=== PATIENT | female | born 1980 | race Caucasian/White ===

== ENCOUNTER → 2020-02-01 13:56 | Outpatient (CLI) | payer OTHER, SELFPAY ==
[2020-02-01 14:53] LABS: hCG Titer Quant., Serum 2543 mIU/mL (1-3)
== END ==
PROVIDERS: Referring Provider Obstetrics & Gynecology; Visit Provider Obstetrics & Gynecology
DX: O02.1 Missed abortion (principal); Z3A.00 Weeks of gestation of pregnancy not specified
CPT/HCPCS: 36415; 84702; 86850; 86900; 86901

== ENCOUNTER → 2020-02-21 16:26 | Outpatient (CLI) | payer OTHER, SELFPAY ==
[2020-02-21 08:16] VITALS: BMI 24.4
[2020-02-23 20:08] LABS: Chlamydia By Nucleic Acid AMP Positive (Negative)
[2020-02-24 07:50] LABS: Gonococcus By Nucleic Acid AMP Negative (Negative)
[2020-02-27 12:52] LABS: HPV APTIMA, High Risk Negative (Negative)
== END ==
PROVIDERS: Visit Provider Obstetrics & Gynecology
DX: Z12.4 Encounter for screening for malignant neoplasm of cervix (principal)
CPT/HCPCS: 87491; 87591; 87624; 88175; G0145

== ENCOUNTER → 2020-03-14 08:07 | Outpatient (CLI) | payer OTHER, SELFPAY ==
[2020-02-21 08:16] VITALS: BMI 24.4
[2020-03-14 08:27] LABS: Absolute Lymphocyte Count 2.27 X10^3/uL (0.83-4.51); Basophil# 0.03 X10^3/uL; Basophil% 0.4 % (0-1); Eosinophils% 1.3 % (0-5); Hematocrit 37.2 % (37-47); Hemoglobin 12.8 g/dL (12.0-15.0); Lymphocyte # 2.27 X10^3/ul (4.0); Lymphocyte % 28.4 % (19-41); Mean Corp Hgb Conc 34.4 g/dL (32-36); Mean Corpuscular Hgb 30.3 pg (27.0-32.0); Mean Corpuscular Volume 87.9 fL (81-99); Mean Platelet Vol. 9.2 fl (6.2-12.0); Monocyte# 0.59 X10^3/uL; Monocyte% 7.4 % (0-10); NRBC Flagged by Analyzer 0 % (0-5); Neutrophil # 4.97 X10^3/uL (2.7-7.7); Neutrophil % 62.1 % (47-70); Platelet Count 247 K/mm3 (150-450); RBC Distribution Width CV 11.8 % (11.6-14.6); RBC Distribution Width SD 37.9 fl (35.1-43.9); Red Blood Count 4.23 M/mm3 (4.2-5.4)
[2020-03-14 14:14] LABS: HIV - WCH Non-Reactive (Nonreactive); Hepatitis B Surface Antigen Non-Reactive (Nonreactive); Hepatitis C Antibody Non-Reactive (Nonreactive); Rubella IgG Reactive (Nonreactive)
[2020-03-15 03:03] LABS: Rapid Plasmin Reagin (RPR) NONREACTIVE (NONREACTIVE)
== END ==
PROVIDERS: Referring Provider Obstetrics & Gynecology; Visit Provider Obstetrics & Gynecology
DX: O09.90 Supervision of high risk pregnancy, unspecified, unspecified trimester (principal)
CPT/HCPCS: 36415; 85025; 86592; 86703; 86762; 86803; 86850; 86870; 86900; 86901; 87340

== ENCOUNTER → 2020-03-22 14:57 | Outpatient (CLI) | payer OTHER, SELFPAY ==
[2020-03-22 09:10] VITALS: BMI 25.3
[2020-03-22 17:48] LABS: Chlamydia Trachomatis by PCR Negative (Negative); Neisserai gonorrhoeae by PCR Negative (Negative); Probe Check PASS; Sample Adequacy Control PASS; Specimen Processing Control PASS
== END ==
LOC: LABSPEC 14:58
PROVIDERS: Referring Provider Obstetrics & Gynecology; Visit Provider Obstetrics & Gynecology
DX: O98.811 Other maternal infectious and parasitic diseases complicating pregnancy, first trimester (principal); A74.9 Chlamydial infection, unspecified; Z3A.00 Weeks of gestation of pregnancy not specified
CPT/HCPCS: 87491; 87591

== ENCOUNTER → 2020-07-12 08:34 | Outpatient (CLI) | payer OTHER, SELFPAY ==
[2020-06-14 08:26] VITALS: BMI 27.2
[2020-07-12 08:48] LABS: Absolute Neutrophil Count 6.1 X10^3/uL (2.0-7.7); Basophil# 0.03 X10^3/uL; Basophil% 0.3 % (0-1); Eosinophil# 0.05 X10^3/uL; Eosinophils% 0.6 % (0-5); Hemoglobin 11.9 g/dL (12.0-15.0); Lymphocyte % 19.8 % (19-41); Mean Corpuscular Hgb 30.7 pg (27.0-32.0); Mean Corpuscular Volume 90.4 fL (81-99); Mean Platelet Vol. 9.5 fl (6.2-12.0); Monocyte# 0.62 X10^3/uL; Monocyte% 7.2 % (0-10); NRBC Flagged by Analyzer 0 % (0-5); Neutrophil # 6.12 X10^3/uL (2.7-7.7); Neutrophil % 71.4 % (47-70); Platelet Count 210 K/mm3 (150-450); RBC Distribution Width CV 12.2 % (11.6-14.6); Red Blood Count 3.87 M/mm3 (4.2-5.4); White Blood Count 8.6 K/mm3 (4.4-11.0)
[2020-07-12 08:56] LABS: Glucose Challenge Gest 1H 50g 151 mg/dL (70-140)
== END ==
PROVIDERS: Referring Provider Obstetrics & Gynecology; Visit Provider Obstetrics & Gynecology
DX: O09.90 Supervision of high risk pregnancy, unspecified, unspecified trimester (principal); O26.899 Other specified pregnancy related conditions, unspecified trimester; Z67.91 Unspecified blood type, Rh negative; Z3A.00 Weeks of gestation of pregnancy not specified
CPT/HCPCS: 36415; 82950; 85025; 86850; 86900; 86901

== ENCOUNTER → 2020-07-20 07:08 | Outpatient (CLI) | payer OTHER, SELFPAY ==
[2020-07-12 09:55] VITALS: BMI 27.2
[2020-07-20 08:12] LABS: Glucose GTT-Gestation. Fasting 93 mg/dL (<105)
[2020-07-20 09:11] LABS: Glucose GTT-Gestational 1 Hr 154 mg/dL (<190)
[2020-07-20 10:26] LABS: Glucose GTT-Gestational 2 Hr 113 mg/dL (<165)
[2020-07-20 11:50] LABS: Glucose GTT-Gestational 3 Hr 88 L (<145)
== END ==
PROVIDERS: Nurse Practitioner Women's Health; Referring Provider Obstetrics & Gynecology; Visit Provider Obstetrics & Gynecology
DX: Z13.1 Encounter for screening for diabetes mellitus (principal)
CPT/HCPCS: 36415; 82951; 82952

== ENCOUNTER 2020-08-23 11:25 | Outpatient (CLI) | payer OTHER, SELFPAY ==
[2020-08-23 10:45] VITALS: BMI 28.9
[2020-08-23 11:43] VITALS: TEMP 37.4
[2020-08-23 11:45] VITALS: PULSE 90; O2SAT 97
[2020-08-23 11:49] VITALS: BP 123/83; PULSE 87
[2020-08-23 11:50] LABS: Hematocrit 35.6 % (37-47); Hemoglobin 12.3 g/dL (12.0-15.0); Mean Corp Hgb Conc 34.6 g/dL (32-36); Mean Corpuscular Hgb 30.1 pg (27.0-32.0); Mean Platelet Vol. 9.8 fl (6.2-12.0); Platelet Count 233 K/mm3 (150-450); RBC Distribution Width CV 12.7 % (11.6-14.6); RBC Distribution Width SD 40.2 fl (35.1-43.9); Red Blood Count 4.09 M/mm3 (4.2-5.4); White Blood Count 9.7 K/mm3 (4.4-11.0)
[2020-08-23 12:02] LABS: Protein, Urine (Random) 17.9 mg/dL (<11.9); Protein:Creat Ratio 394 mg/g CRE (0-200)
[2020-08-23 12:03] VITALS: BP 118/78; PULSE 78
[2020-08-23 12:13] LABS: AST(SGOT) 11 U/L (15-37); Alanine Aminotransfer ALT/SGPT 14 U/L (13-56); EST Glomerular Filtration Rate 189 mL/min (>60); Est Glom Filt Rate - Afr Amer 229 mL/min (>60)
[2020-08-23 12:18] VITALS: BP 118/74; PULSE 82
--- NOTE | 2020-08-24 12:07 | OB.TRI.PN ---
Progress Notes Date of Service: 08/23/20 Progress Note: Patient presents for triage evaluation secondary to elevated blood pressure and intermittent PARK. BPs normal in triage. PreE labs normal except mildly elevated protein FHT: Moderate variability reactive no decelerations category I tracing [place]: No Contractions Assessment and plan: Reactive NST, reassuring maternal and status patient discharged to home to follow-up at next scheduled visit. See problem list details for additional plan information. Laboratory Studies: Laboratory Tests 08/23/20 08/23/20 08/23/20 Range/Units 11:40 11:40 11:40 WBC 9.7 (4.4-11.0) K/mm3 RBC 4.09 L (4.2-5.4) M/mm3 Hgb 12.3 (12.0-15.0) g/dL Hct 35.6 L (37-47) % MCV 87.0 (81-99) fL MCH 30.1 (27.0-32.0) pg MCHC 34.6 (32-36) g/dL RDW Std Deviation 40.2 (35.1-43.9) fl RDW Coeff of Nick 12.7 (11.6-14.6) % Plt Count 233 (150-450) K/mm3 MPV 9.8 (6.2-12.0) fl Creatinine 0.40 L (0.55-1.02) mg/dL Est GFR (MDRD) Af Amer 229 (>60) mL/min Est GFR (MDRD) Non-Af 189 (>60) mL/min Uric Acid 3.0 (2.6-6.0) mg/dL AST 11 L (15-37) U/L ALT 14 (13-56) U/L U Random Total Protein 17.9 H (<11.9) mg/dL Urine Creatinine 45.40 (NO RANGE EST.) mg/dL Protein/Creatinin Ratio 394 H (0-200) mg/g CRE Charges/Coding Procedures Urinary/Genital 52xxx-59xxx: [id number] non-stress test Interp
== END 2020-08-23 12:35 | disposition home or self-care (01) ==
LOC: WPOUT 11:30 → WP 11:31
PROVIDERS: Referring Provider Obstetrics & Gynecology; Visit Provider Obstetrics & Gynecology
DX: O26.899 Other specified pregnancy related conditions, unspecified trimester (principal); R03.0 Elevated blood-pressure reading, without diagnosis of hypertension; R51.9 Headache, unspecified; Z3A.00 Weeks of gestation of pregnancy not specified
CPT/HCPCS: 36415; 59050; 82565; 82570; 84156; 84450; 84460; 84550; 85027; 99218; G0378

== ENCOUNTER → 2020-09-03 08:05 | Outpatient (CLI) | payer OTHER, SELFPAY ==
[2020-07-12 09:55] VITALS: BMI 27.2
[2020-08-31 08:51] VITALS: BMI 28.9
--- NOTE | 2020-09-03 08:07 | US_ITS ---
STUDY: SECOND AND THIRD TRIMESTER OBSTETRICAL ULTRASOUND - LIMITED REASON FOR EXAM: Female, 39 years old 36 week growth LMP: 12/27/2019. PRIOR ULTRASOUND: None. TECHNIQUE: Transabdominal TECHNICAL QUALITY: Adequate. FINDINGS: There is a single intrauterine fetus. The fetus is in a cephalic presentation. There is demonstrated cardiac activity with a heart rate of 141 bpm. There is a normal amniotic fluid volume. The largest amniotic fluid pocket measures 5.9 cm. The amniotic fluid index (FELICITAS) is 9.92 cm. The placenta is anterior in location and is not low lying. There are Grade 1 placental changes. The cervix measures 3.4 cm in length. BIOMETRY: BPD: 9.24 cm: 37 weeks, 3 days HC: 33.04 cm: 37 weeks, 4 days AC: 31.66 cm: 35 weeks, 4 days FL: 6.96 cm: 35 weeks, 4 days Age by LMP: 35 weeks, 6 days. ARNAV by LMP: 10/02/2020. age by current US: 37 weeks, 3 days. ARNAV by current US: 09/28/2020. Estimated weight: 2845 grams, +/- 427 grams, 57 percentile. US/OB Limited With Biometrics IMPRESSION: Single live intrauterine gestation with a mean gestational age of 37 weeks and 3 days. Electronically Signed: Parvez Draper MD at 14:46 EDT , Service support ,
[2020-09-03 11:00] LABS: Protein, Urine (Random) 33.4 mg/dL (<11.9); Protein:Creat Ratio 301 mg/g CRE (0-200)
[2020-09-03 12:57] LABS: Chlamydia Trachomatis by PCR Negative (Negative); Neisserai gonorrhoeae by PCR Negative (Negative); Probe Check PASS; Sample Adequacy Control PASS; Specimen Processing Control PASS
== END ==
PROVIDERS: Referring Provider Obstetrics & Gynecology; Visit Provider Obstetrics & Gynecology
DX: O09.522 Supervision of elderly multigravida, second trimester (principal); O09.90 Supervision of high risk pregnancy, unspecified, unspecified trimester; A74.9 Chlamydial infection, unspecified; O98.811 Other maternal infectious and parasitic diseases complicating pregnancy, first trimester; O16.9 Unspecified maternal hypertension, unspecified trimester
CPT/HCPCS: 76816; 82570; 84156; 87491; 87591

== ENCOUNTER → 2020-09-14 14:22 | Outpatient (CLI) | payer OTHER, SELFPAY ==
[2020-09-14 13:23] VITALS: BMI 28.9
[2020-09-14 14:34] LABS: Absolute Lymphocyte Count 2.19 X10^3/uL (0.83-4.51); Absolute Neutrophil Count 7.5 X10^3/uL (2.0-7.7); Basophil# 0.02 X10^3/uL; Basophil% 0.2 % (0-1); Eosinophil# 0.05 X10^3/uL; Eosinophils% 0.5 % (0-5); Hematocrit 38.9 % (37-47); Hemoglobin 13.4 g/dL (12.0-15.0); Lymphocyte # 2.19 X10^3/ul (0.83-4.51); Lymphocyte % 20.3 % (19-41); Mean Corp Hgb Conc 34.4 g/dL (32-36); Mean Corpuscular Hgb 30.5 pg (27.0-32.0); Mean Corpuscular Volume 88.4 fL (81-99); Mean Platelet Vol. 10.1 fl (6.2-12.0); Monocyte# 0.95 X10^3/uL; Monocyte% 8.8 % (0-10); NRBC Flagged by Analyzer 0 % (0-5); Neutrophil # 7.52 X10^3/uL (2.7-7.7); Neutrophil % 69.5 % (47-70); Platelet Count 228 K/mm3 (150-450); RBC Distribution Width SD 42.4 fl (35.1-43.9); White Blood Count 10.8 K/mm3 (4.4-11.0)
[2020-09-14 14:59] LABS: ALB/GLOB Ratio 0.8 RATIO (0.9-2.4); AST(SGOT) 15 U/L (15-37); Alanine Aminotransfer ALT/SGPT 18 U/L (13-56); Alkaline Phosphatase 113 U/L (45-117); Anion Gap 10 (5-15); BUN 7 mg/dL (7-18); Calcium,Total 9.1 mg/dL (8.5-10.1); Chloride 106 mmol/L (98-107); Creatinine, Serum 0.54 mg/dL (0.55-1.02); EST Glomerular Filtration Rate 135 mL/min (>60); Est Glom Filt Rate - Afr Amer 163 mL/min (>60); Globulin 3.8 g/dL (2.2-4.2); Glucose 91 mg/dL (74-106); Potassium 3.5 mmol/L (3.5-5.1); Protein, Total 6.8 g/dL (6.4-8.2); Sodium Level 138 mmol/L (136-145)
[2020-09-17 20:07] LABS: Chlamydia By Nucleic Acid AMP Negative (Negative)
[2020-09-17 21:51] LABS: Gonococcus By Nucleic Acid AMP Negative (Negative)
== END ==
PROVIDERS: Referring Provider Obstetrics & Gynecology; Visit Provider Obstetrics & Gynecology
DX: O98.811 Other maternal infectious and parasitic diseases complicating pregnancy, first trimester (principal); A74.9 Chlamydial infection, unspecified; O12.10 Gestational proteinuria, unspecified trimester; Z3A.00 Weeks of gestation of pregnancy not specified
CPT/HCPCS: 36415; 80053; 85025; 87077; 87081; 87186; 87491; 87591

== ENCOUNTER 2020-09-18 07:15 | Inpatient (IN) | payer OTHER, SELFPAY ==
[2020-09-17 10:14] VITALS: BMI 28.9
[2020-09-18] VITALS (28 sets, daily range): BP systolic 109–178; BP diastolic 55–103; PULSE 64–114; TEMP 36.4–37.7; O2SAT 97–100
[2020-09-18] MEDS: 0.9% Normal Saline Single 100 ML IV.SOLN. INTRA-UTER (08:00)
[2020-09-18] MEDS: Lactated Ringers 1,000 ML 50 ML IV (08:15)
[2020-09-18 08:39] LABS: Absolute Lymphocyte Count 1.78 X10^3/uL (0.83-4.51); Absolute Neutrophil Count 5.8 X10^3/uL (2.0-7.7); Basophil# 0.02 X10^3/uL; Basophil% 0.2 % (0-1); Eosinophil# 0.05 X10^3/uL; Eosinophils% 0.6 % (0-5); Hematocrit 34.9 % (37-47); Lymphocyte # 1.78 X10^3/ul (0.83-4.51); Lymphocyte % 20.8 % (19-41); Mean Corp Hgb Conc 34.4 g/dL (32-36); Mean Corpuscular Hgb 30.1 pg (27.0-32.0); Mean Corpuscular Volume 87.5 fL (81-99); Mean Platelet Vol. 10.3 fl (6.2-12.0); Monocyte# 0.84 X10^3/uL; Monocyte% 9.8 % (0-10); NRBC Flagged by Analyzer 0 % (0-5); Neutrophil # 5.78 X10^3/uL (2.7-7.7); Neutrophil % 67.7 % (47-70); Platelet Count 217 K/mm3 (150-450); RBC Distribution Width CV 12.9 % (11.6-14.6); RBC Distribution Width SD 40.9 fl (35.1-43.9); Red Blood Count 3.99 M/mm3 (4.2-5.4); White Blood Count 8.6 K/mm3 (4.4-11.0)
[2020-09-18] MEDS: Oxytocin 30 units/NS 500 ml 30 UNITS/500 ML IV.SOLN IV (08:55)
--- NOTE | 2020-09-18 09:32 | PCM.HP.BLA ---
History and Physical Date of Admission: 09/18/20 Intake Vital Signs 09/17/20 10:14 09/17/20 10:14 Height 5 ft 11 in Weight: 216 lb BMI 30.1 28.9 BP 110/70 Intake Visit Reasons: NST only with SM Chief Complaint: est ob NST and FELICITAS in office Breakfast Host Required: No Is patient in pain?: No Allergies No Known Allergies Allergy (Verified 09/03/20 09:43) Medications vitamin#30 30 mg iron-10 mg iron-folic acid 1 mg-omg3 capsule cap PO 02/02/20 history Confirmed 09/17/20 promethazine 12.5 mg tablet 12.5 mg PO TID PRN #60 tab 03/06/20 Rx Confirmed 09/17/20 metoclopramide HCl 10 mg tablet 10 mg PO Q6H PRN #30 tab 04/19/20 Rx Confirmed 09/17/20 blood pressure monitor #1 ea 08/29/20 Rx Confirmed 09/17/20 Last Menstral Period: 12/27/19 Zika: Zika virus screening: Negative : No PFSH PFSH Medical History Abnormal glucose affecting History of tetanus, diphtheria, and acellular pertussis booster vaccination (Tdap) Plantar fasciitis Surgical History H/O dilation and curettage Family History Grandmother Diabetes Grandfather Diabetes Social History adopted: No household members: children number of children: 1 current occupational status: employed pets and animals: Yes Smoking Status: Never smoker second hand exposure: No alcohol intake: current details: pre social substance use type: does not use caffeine: Yes what type of physical activity do you participate in: running and bicycling seatbelt use: always do you feel safe at home: Yes 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 Date Name GA/Weeks Outcome Route Bth Weight Infant Gen Labor Lgth Anesthesia Del Locatn Provider FOB Unknown 2010 Faisal 38 live - full term 8lbs 14oz Male 12 hous epidural [facility]. Calhoun Delivery Date: IoL d/t retaining fluid Nikia Adame HPI Details: AXEL HUERTA is a 39 year old who presents for induction of labor secondary to preeclampsia. Patient had elevated blood pressures at home and has had proteinuria for the last few weeks. Labs are within normal limits. She has been experiencing daily headaches that are intermittent. Patient denies any visual changes. OB Visit ARNAV Calculator Estimated Delivery Date Method Current WG Current Estimate 10/02/20 LMP (Certain) 37w 6d Other Estimates 09/30/20 Ultrasound #1 38w 1d Expected Delivery Route/Plan Labor Preferences- CB/BF classes: no labor support person: Mary labor intervention preferences: pain management options preferred: epidural cut cord/dad catch: yes : yes PP control planned: pill discussed possible routes of delivery and associated risks: special requests: Specific Issue/Plans delivery by 39 due to ama and proteinuria flu vaccine: yes tdap vaccine: given rhogam: given 07/12/20 LARC form signed: yes Problem list reviewed and updated with the most current plan of care details and appropriate orders placed. Relevant counseling for the gestational age provided. Continue routine care and follow up unless otherwise noted in visit notes/problem list details Initial Weight: Not Recorded Date EGA Weight BP Urine Prot Glucose FHR FuHt Pres Dilation Effaced St Visit Note 02/21/20 8w 0d 175 lb 2 oz 140/82 170 GP - CRL 16mm consistent with LMP. 03/22/20 12w 2d 181 lb 8 oz 138/88 150 GP - no cramping or bleeding. PRR. Anatomy scan ordered. 04/19/20 16w 2d 186 lb 4 oz 130/82 Negative Negative 150 GP - no cramping or bleeding. Discussed headaches - encouraged daily magnesium, script given for reglan. Discussed medications for constipation. Having a girl - considering Camron Moses for name. 05/18/20 20w 3d 189 lb 2 oz 120/82 Negative Negative 155 GP - no ctx, LOF, VB, DFM. GP - no ctx, LOF, VB, DFM. Anatomy scan normal. 06/14/20 24w 2d 195 lb 6 oz 130/86 Negative Negative 150 25 SM- no vb lof good fm no regular ctx 07/12/20 28w 2d 203 lb 126/70 Negative Negative 158 28 MH-NO VB, LOF. Good FM. 28 wk labs-needs 3hr GTT. Rhogam, larc. TDAP next visit? 07/26/20 30w 2d 199 lb 6 oz 124/72 Negative Negative 153 30 MH-No Vb, LOF. Good Fm. tdap. Nl 3 hr GTT 08/09/20 32w 2d 204 lb 2 oz 132/86 Trace Negative 150 32 SM- no vb lof good fm no regular ctx 08/23/20 34w 2d 207 lb 8 oz 120/90 Negative Negative 150 34 GP - no LOF, VB, DFM, ctx. PARK and mildly elevated BP today. Sent to triage for eval. 08/31/20 35w 3d 210 lb 2 oz 118/74 Trace Negative 09/03/20 35w 6d 211 lb 2 oz 132/80 Trace Negative 150 34 SM- no vb lof good fm no regular ctx had us today SM- no vb lof good fm no regular ctx had us today. home bps WNL. no park bv. reviewed preeclampsia precautions and testing reocmmendations 09/14/20 37w 3d 213 lb 134/86 Negative Negative 09/17/20 37w 6d 216 lb 110/70 140 SM- no vb lof good but decreased fm, no regular ctx. reviewed BPs from home and mostly 140s/90s ACOG First Trimester First Trimester: Desire for , Alcohol, Tobacco Cessation, Illicit/Recreational Drug/Substance Use, Intimate Partner Violence, Barriers to care, Unstable Housing, Communication Barriers, Environmental/Work Hazards, Anticipated Course of Care, Toxoplasmosis Precations, Use of Any medications, Sexual activity, Exercise, Dental Care, Sauna/Hot tub use, Seat Belt use, Childbirth classes/Hospital facilities, , Travel, Indications for Ultrasound and Screening for Aneuploidy Second Trimester Second Trimester: Signs and Symptoms of Labor, Selecting a care provider, Reproductive Life Planning & Contreception, Care Planning, Depression/Anxiety and Intimate Partner Violence; Discussed Tobacco Cessation Third Trimester Third Trimester: Pain Management Plans, Labor support person(s), Immediate Larc, Movement Monitoring and Infant Feeding Yes Diagnostics Diagnostics Diagnostics: Blood Type B NEGATIVE Antibody Screen NEGATIVE Gest Glucose Tolerance MG/DL Glucose 1 Hr 50 gm 151 mg/dL (70-140) H Hgb 13.4 g/dL (12.0-15.0) Hct 38.9 % (37-47) Chlamydia DNA (SEBASTIEN) Pending N.gonorrhoeae DNA (SEBASTIEN) Pending Details: HIV: Urine Culture: Sequential Screen: NIPT Screen: ROS Const Reports system reviewed and no additional complaints, except as documented Card Reports system reviewed and no additional complaints, except as documented Resp Reports system reviewed and no additional complaints, except as documented GI Reports system reviewed and no additional complaints, except as documented and Reports nausea Reports system reviewed and no additional complaints, except as documented Musc Reports system reviewed and no additional complaints, except as documented Exam Const General: cooperative, healthy appearing, comfortable and anxious HENMT Head: normal to inspection Nose: external nose normal Face and sinus: normal facial exam Neck Neck: normal visual inspection, full ROM and no lymphadenopathy Thyroid: thyroid normal Chest Chest palpation & inspection: normal inspection of the chest Resp Effort & Inspection: normal respiratory effort GI Inspection: normal to inspection Palpation: soft and other (gravid uterus) Other: vertex and appropriate size for gestational age Other: Cervical Exam: Extrem General: pedal edema Office Procedures Non-stress Test Non-Stress Test Indications for Monitoring: Yes hypertension Heart Rate Baseline: 140 Heart Rate Variability: moderate Movement: Present Heart Rate Accelerations: Present Decelerations: Absent Contractions: Absent Impression: Yes Reactive Non-Stress Test Category 1 Coding Level of Care Code OB Routine Diagnoses Proteinuria affecting O12.10 Abnormal glucose affecting O99.810 Chlamydia infection affecting in first trimester O98.811; A74.9 Supervision of high risk , antepartum O09.90 Z3A.37 Weeks of gestation: 37 weeks AMA (advanced maternal age) multigravida 35+ O09.522 Trimester: second trimester Rh negative status during O26.892 Trimester: second trimester CPT Codes Non-Stress Test (33625) Assessment and Plan Assessment and Plan (1) Proteinuria affecting : Status: Acute Comment: weekly nsts, growth us WNL. reviewed preeclampsia precautions. home bp checks. Orders: Orders: OB NST Today (2) Abnormal glucose affecting : Status: Acute Comment: 3 hr GTT nl (3) Chlamydia infection affecting in first trimester: Status: Acute Comment: Negative on 03/22/20 (4) Supervision of high risk , antepartum: Status: Acute Comment: PRR ARNAV 10/02/20 [place] PC: Faisal BF: Mary Orders: Orders: OB NST Today (5) : Status: Acute Qualifiers: Weeks of gestation: 37 weeks Qualified Code(s): Z3A.37 - 37 weeks gestation of Comment: genetic- low risk and carrier, afp declined; NL anatomy (6) AMA (advanced maternal age) multigravida 35+: Status: Acute Qualifiers: Trimester: second trimester Qualified Code(s): O09.522 - Supervision of elderly multigravida, second trimester Comment: NIPT negative Growth US 36 wk, 09/03 adequate growth (7) Rh negative status during : Status: Acute Qualifiers: Trimester: second trimester Qualified Code(s): O26.892 - Other specified related conditions, second trimester Comment: rhogam given 02/01 and 07/12 Plan Details Patient presents IOL, management for with pitocin/AROM. Pain management: Plans epidural. GBS pos plan penicillin Management of any complications: None I have reviewed the [facility] and made any clinically relevant updates.
[2020-09-18] MEDS: Acetaminophen 500 MG Tablet PO (11:15)
[2020-09-18] MEDS: Lactated Ringers 500 ML 999 ML IV (11:58)
[2020-09-18] MEDS: fentaNYL-bupivacaine (epidural) 100 ML BAG EPIDURAL (13:16)
[2020-09-18] MEDS: Penicillin G 3,000,000 Units 50 ML 100 UNITS IV ×2 (13:40→18:22)
[2020-09-18] MEDS: Lactated Ringers 1,000 ML 200 ML IV (15:51)
[2020-09-18] MEDS: Oxytocin 30 units/NS 500 ml 30 UNITS/500 ML IV.SOLN 334 UNITS IV (18:56)
--- NOTE | 2020-09-18 19:16 | OP.PCM_ITS ---
Assessment & Plan (1) Pre-eclampsia affecting childbirth: (2) Vaginal delivery: COMMENT: 38 IOL preeclampsia [place] SM Maternal Data Information ARNAV Calculator Estimated Delivery Date Method Current WG Current Estimate 10/02/20 LMP (Certain) 38w 0d Other Estimates 09/30/20 Ultrasound #1 38w 2d Vaginal Delivery Maternal Presentation Maternal Presentation: Medically Indicated Induction Maternal Presentation: iol preeclampsia Type of Induction: Pitocin and [place] [facility] [facility] Reason for Induction: Preeclampsia, eclampsia Operative Information Date of Procedure: 09/18/20 Pre-Operative Diagnosis: iol preeclampsia Post-Operative Diagnosis: same Surgery / Procedure Performed: Spontaneous Vaginal Delivery Type of Anesthesia: Epidural Special Medications: none Estimated Blood Loss: 100 Fluids Replaced: crystalloid Findings Description of Procedure: Patient began pushing and delivered the head in the RIAZ presentation. The head was delivered atraumatically and a loose nuchal cord ?1 was identified and the delivered through without complication. The anterior and posterior shoulders delivered without complication followed by the rest of the infant and the was placed on the maternal abdomen. Delayed cord clamping was employed for approximately 60 seconds. Cord was clamped and cut and gentle traction was applied to the cord and the placenta delivered spontaneously immediately following it was noted to be intact with three-vessel cord. The perineum and vagina were inspected and noted to have no laceration. EBL was 100 cc. Patient and infant tolerated delivery well. Presentation: AMBAR Amniotic Membrane Rupture Type: Artificial Amniotic Fluid Description: Clear Placental Delivery Description: Spontaneous Placenta Disposition: [facility] Cord Vessel Description: 3 Vessels Cord Entanglement: Around neck x 1, loose Infant A Gender: Female Delayed Cord Clamping: Yes Post Vaginal Delivery Medications Given After Delivery: IV Pitocin Episiotomy Description: None Laceration: None Complication Complications: None Procedures Urinary/Genital 52xxx-59xxx: [id number] Vaginal Delivery [facility]
--- NOTE | 2020-09-18 19:18 | PCM.DC ---
Discharge Instructions Diet Discharge Diet: No restrictions Activity Discharge Activity: Return to Normal Activity, May Not Drive (while taking narcotic pain medications.) and May Shower May resume sexual activity in: 4-6 weeks Dressing / Incision Call your doctor if your incision/area has: Continuous Slow Oozing, Sudden Increased Bleeding, Increased Pain/ Swelling, Increased Redness and Foul Smelling Discharge Follow Up Care Please Follow Up With: Yuliya Alcazar MD When: Call [phone] to make an appointment with your doctor in 6 weeks. If you had elevated blood pressure or 4th degree laceration, you will need to be seen in 2 weeks. Test Results: Test results from this visit will be discussed in further detail at your follow-up appointment, if applicable. Discharge Plan Admission Admit Date/Time: 09/18/20 07:15 Attending Provider: Yuliya Alcazar Primary Care Provider: Care Physician,Kaci Primary Discharge Orders/Prescriptions Prescriptions: No Action vitamin#30 30 mg iron-10 mg iron-folic acid 1 mg-omg3 capsule 30 mg iron-10 mg iron-1 mg capsule 1 cap PO DAILY RF: 0
[2020-09-19] VITALS (11 sets, daily range): BP systolic 108–147; BP diastolic 63–89; PULSE 67–94; RESP 16–18; TEMP 36.6–37.3; O2SAT 92–97
[2020-09-19] MEDS: Naproxen 500 MG Tablet PO ×2 (01:21→09:22)
[2020-09-19] MEDS: Acetaminophen 500 MG Tablet 1000 MG PO ×2 (05:50→12:32)
--- NOTE | 2020-09-19 07:43 | PN.OBGYN_ITS ---
Subjective Subjective Patient doing well without complaints. Tolerating PO. Ambulating and voiding without difficulty. feeding well. Denies chest pain, shortness of breath, calf pain/swelling, fevers, chills, lightheadedness. Objective Data Objective Data Vital Signs: Vital Signs Temp Pulse Resp BP Pulse Ox 98 F 72 16 108/63 97 09/19/20 05:42 09/19/20 05:42 09/19/20 05:42 09/19/20 05:42 09/18/20 19:05 Oxygen Delivery Method Room Air Weight: 215 lb 9.793 oz Body Mass Index (BMI) 30.0 Intake & Output: Intake and Output for Last 24 Hours 09/17/20 09/18/20 09/19/20 23:59 23:59 23:59 Intake Total 2997.73 / 2997.73 Output Total 800 / 800 500 / 500 Balance 2197.73 / 2197.73 -500 / -500 Lab / Micro Data Result Diagrams: 09/18/20 08:10 Labs: Laboratory Results - last 24 hr 09/18/20 08:10: WBC 8.6, RBC 3.99 L, Hgb 12.0, Hct 34.9 L, MCV 87.5, MCH 30.1, MCHC 34.4, RDW Std Deviation 40.9, RDW Coeff of Nick 12.9, Plt Count 217, MPV 10.3, Immature Gran % (Auto) 0.900, Neut % (Auto) 67.7, Lymph % (Auto) 20.8, [place] % (Auto) 9.8, Eos % (Auto) 0.6, Baso % (Auto) 0.2, Absolute Neuts (auto) 5.8, Absolute Lymphs (auto) 1.78, Nucleated RBC % 0 09/18/20 08:10: Blood Type B NEGATIVE, Antibody Screen NEGATIVE 09/19/20 01:30: Screen POSITIVE H, Baby's Blood Type O POSITIVE, Baby's AGUS NEGATIVE Micro: Microbiology 09/18/20 10:35 Mucosa - Nasopharyngeal SARS-CoV-2 Antigen (Rapid) - Final Physical Exam Const alert and oriented x3 HEENT normocephalic Eyes PERRL Neck full ROM Resp normal respiratory effort GI soft to palpation GI Narrative: FF below U Assessment & Plan (1) Vaginal delivery: COMMENT: 38 IOL preeclampsia [place] SM (2) Pre-eclampsia affecting childbirth: PLAN: s/p PPD # 1 1. routine post delivery care 2. breast feeding- support given 3. rh negative 4. rubella immune 5. BP stable
[2020-09-19] MEDS: Prenatal Vits Tablet 1 TABLET PO (09:22)
[2020-09-19 13:38] LABS: Kleihauer-Betke POSITIVE
== END 2020-09-19 21:45 | disposition home or self-care (01) | DRG 807 ==
PROVIDERS: Admitting Provider Obstetrics & Gynecology; Referring Provider Obstetrics & Gynecology; Visit Provider Obstetrics & Gynecology
DX: O14.94 Unspecified pre-eclampsia, complicating childbirth (principal); Z37.0 Single live birth; O69.81X0 Labor and delivery complicated by cord around neck, without compression, not applicable or unspecified; Z3A.37 37 weeks gestation of pregnancy; Z67.21 Type B blood, Rh negative
CPT/HCPCS: 59025; 59050; 85025; 85460; 85461; 86850; 86900; 86901; 87426; 90384; J7120; J2790

== ENCOUNTER → 2020-11-06 15:04 | Outpatient (CLI) | payer OTHER, SELFPAY ==
[2020-11-06 15:44] LABS: T4 Free Direct 0.92 ng/dL (0.76-1.46); Thyroid Stim Hormone (TSH) 1.27 uIU/mL (0.358-3.74)
== END ==
PROVIDERS: Referring Provider Obstetrics & Gynecology; Visit Provider Obstetrics & Gynecology
DX: E01.0 Iodine-deficiency related diffuse (endemic) goiter (principal)
CPT/HCPCS: 36415; 84439; 84443

== ENCOUNTER → 2020-11-13 14:30 | Outpatient (CLI) | payer OTHER, SELFPAY ==
--- NOTE | 2020-11-13 14:31 | US_ITS ---
STUDY: THYROID ULTRASOUND REASON FOR EXAM: Female, 40 years old. Palpably enlarged thyroid TECHNIQUE: Ultrasound evaluation of the thyroid was performed with real-time and static pack-scale imaging. COMPARISON: None. FINDINGS: RIGHT LOBE: The right lobe of the thyroid gland measures 6.1 x 2.1 x 1.5 cm. There is a homogeneous echotexture. There is a solid point a 5.9 x 0.5 cm hypoechoic nodule LEFT LOBE: The left lobe of the thyroid gland measures 5 x 2.1 x 1.5 cm. There is a homogeneous echotexture. There is a solid hypoechoic 1.0 x 0.7 x 0.6 cm nodule ISTHMUS: The isthmus measures 0.2 cm. The regional lymph nodes are normal. US/Thyroid IMPRESSION: Enlarged homogeneous thyroid with bilateral hypoechoic solid nodules. Since there are no previous studies available for comparison, further evaluation with thyroid uptake study is recommended. If either nodule should demonstrate suspicious characteristics, biopsy would be recommended, if not, six-month follow-up ultrasound would be recommended to ensure stability Electronically Signed: Andrew Ordonez MD at 16:23 EDT , Service support ,
== END ==
PROVIDERS: Referring Provider Obstetrics & Gynecology; Visit Provider Obstetrics & Gynecology
DX: E01.0 Iodine-deficiency related diffuse (endemic) goiter (principal)
CPT/HCPCS: 76536

== ENCOUNTER 2021-05-24 13:22 | Outpatient (CLI) | payer OTHER, SELFPAY ==
--- NOTE | 2021-05-24 13:24 | US_ITS ---
STUDY: THYROID ULTRASOUND REASON FOR EXAM: Female, 40 years old. Thyroid nodule TECHNIQUE: Ultrasound evaluation of the thyroid was performed with real-time and static pack-scale imaging. COMPARISON: Comparison is made with prior examination dated 11/13/2020. FINDINGS: RIGHT LOBE: The right lobe of the thyroid gland is enlarged and measures 5.3 cm x 2.4 cm x 1.6 cm. There is a homogeneous echotexture. There is a 9 mm x 10 mm x 5 mm well-defined solid hypoechoic nodule in the anterior midpole of the right lobe. Intranodular vascularity is seen. LEFT LOBE: The left lobe of the thyroid gland measures 5.1 cm x 1.9cm x 1.5 cm. There is a homogeneous echotexture. There is a 1.2 cm x 0.6 cm x 0.6 cm hypoechoic solid nodule in the mid lower pole of the left lobe. This is essentially unchanged as compared to prior study. A second well-defined hypoechoic solid nodule measuring 4 mm x 4 mm x 2 mm is seen in the lower pole. ISTHMUS: The isthmus measures 3 mm. The regional lymph nodes are normal. US/Thyroid IMPRESSION: Mild increase in size of the previously seen hypoechoic solid nodule in the right lobe as well as in the lower pole of the left lobe. Electronically Signed: Parvez Draper MD at 14:21 EDT ,
== END 2021-05-24 23:59 | disposition home or self-care (01) ==
LOC: US 13:23
PROVIDERS: PCP Nurse Practitioner Family; Referring Provider Nurse Practitioner Family; Visit Provider Nurse Practitioner Family
DX: E04.1 Nontoxic single thyroid nodule (principal)
CPT/HCPCS: 76536

== ENCOUNTER → 2021-06-24 | Outpatient (CLI) | payer OTHER, SELFPAY ==
--- NOTE | 2021-06-24 13:03 | RAD_ITS ---
1. INDICATION: Back pain EXAMINATION/TECHNIQUE: X-RAY - XR Spine Lumbar Min 4 Views COMPARISON: None. FINDINGS: VERTEBRAE: Preserved vertebral body height. No fracture. No spondylolisthesis. Preservation of the normal lumbar lordosis. Mild multilevel facet arthropathy. DISCS: Mild multilevel degenerative disc disease and spondylosis. INCLUDED ABDOMEN: Included bowel gas pattern is non-obstructive. RAD/L/S Spine Min 4 Views IMPRESSION: No evidence of lumbar spinal fracture or spondylolisthesis. Mild multilevel degenerative disc disease and spondylosis. Electronically Signed: Alfred Chaudhari MD at 17:30 EDT ,
== END | disposition home or self-care (01) ==
LOC: RAD 12:59
PROVIDERS: PCP Nurse Practitioner Family; Referring Provider Chiropractor; Visit Provider Chiropractor
DX: M54.9 Dorsalgia, unspecified (principal); M99.03 Segmental and somatic dysfunction of lumbar region; M99.05 Segmental and somatic dysfunction of pelvic region
CPT/HCPCS: 72110

== ENCOUNTER 2022-01-09 08:18 | Outpatient (RCR) | payer OTHER, SELFPAY ==
--- NOTE | 2022-01-13 08:56 | HP.PTEVAL ---
Patient's Visit Information AXEL CARTAGENA is a 41 year old F referred to Physical Therapy by Dr. Nadeen Macias DC with a diagnosis of Lumbar spine pain. Date of Evaluation: 01/13/22 Physical Therapist: José Miguel Bullock DPT - Visit Plan Frequency: 2x /Week Duration: 4 Weeks Plan: Pt. to work on core stability exercises with neutral spine. Just slightly easier than what she was already doing, then build to harder exercises. Pt. to trial exercises on her own for 2 weeks. hooklying TA 2x10x5. + iso hip at 90deg 2x10x5/ea. + deadbug row 15# 3x10/ea. SL clamshell PTB [id number]. bridge with 45# 2x10. + alternating elg lifts 2x10/ea. - Subjective Pt. is here today for her initial evaluation with diagnosis of back pain of lumbar spine. Pt. reports having increased pain for ~6-8 months, but might have had some symptoms since her daughter was born 18 month prior. Pt. repots increased pain with running, after running, most core exercises. 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 She denies radicular symptoms, but mostly central pain in upper lumbar region. No BLE weakness, no changes in B/B. She did have an xray showing lumbar scoliosis as well. Pt. reports no other back pain previously. She has been working out on her pelaton and doing their core work ~2 times per week, pelaton daily. Pt. is hopeful to reduce symptoms in order to get back to all working out without limitations. - Pain Lumbar spine Pain Intensity (Out of 10): 1 Pain Intensity Range: 0, 4 - Objective POSTURE: Pt. has decent posture in stance. Normal iliac crest heights. PALPATION: Pt. has slight tenderness at L2 and L3 spinous processes. Pt. has marked hypomobility throughout. NEURO: normal throughout BLEs. ROM: LUMABR SPINE: full motion, except mod loss with extension, no increase in pain with all testing. Pt. has normal hip ROM without increase in LBP. MMT: 5/5 LE strength noted. Pt. reports mild increase in symptoms with testing hip flexion, crossed symptoms noted. Core strength (TA) poor. Pt. is able to complete PPT, but difficult to maintain with any stress applied to core musculature. GAIT: normal no issues noted. - Special Tests L/S Slump test left side: Negative L/S Slump test right side: Negative L/S Left Straight Leg Raise: Negative L/S Right Straight Leg Raise: Negative L/S Instability PA Test: Negative L/S Prone Instability Test: Positive Lumbar Standing: Flexion - Mechanical Response: No effect Lumbar Standing: Flexion - Symptoms During Testing: No effect Lumbar Standing: Flexion - Symptoms After Testing: No effect Lumbar Standing: Extension - Mechanical Response: No effect Lumbar Standing: Extension - Symptoms During Testing: No effect Lumbar Standing: Extension - Symptoms After Testing: No effect Comments:: fairly stiff with extension Lumbar Standing: Right Side Glides - Mechanical Response: No effect Lumbar Standing: Right Side Delmar - Symptoms During Testing: No effect Lumbar Standing: Right Side Delmar - Symptoms After Testing: No effect Lumbar Standing: Left Side Delmar - Mechanical Response: No effect Lumbar Standing: Left Side Delmar - Symptoms During Testing: No effect Lumbar Standing: Left Side Delmar - Symptoms After Testing: No effect Lumbar Lying: Flexion - Mechanical Response: No effect Lumbar Lying: Flexion - Symptoms During Testing: No effect Lumbar Lying: Flexion - Symptoms After Testing: No effect Lumbar Lying: Extension - Mechanical Response: No effect Lumbar Lying: Extension - Symptoms During Testing: No effect Lumbar Lying: Extension - Symptoms After Testing: No effect Lumbar Static: Slouched Sit - Mechanical Response: No effect Lumbar Static: Slouched Sit - Symptoms During Testing: No effect Lumbar Static: Slouched Sit - Symptoms After Testing: No effect Lumbar Static: Sitting Erect - Mechanical Response: No effect Lumbar Static: Sitting Erect - Symptoms During Testing: No effect Lumbar Static: Sitting Erect - Symptoms After Testing: No effect Lumbar Static:Lying Prone in Extension - Mechanical Response: No effect Lumbar Static: Lying Prone in Extension - Sx During Testing: No effect Lumbar Static: Lying Prone in Extension - Sx After Testing: No effect - Balance/Special Test Scores Oswestry Low Back Score: 17 - Goals Goal 1:: LTG: Pt. to be I with HEP for core stability. Goal Time Frame: 4-6 Weeks Goal 2:: STG: Pt. to walk without increase in symptoms. Goal Time Frame: 2 Weeks Goal 3:: LTG: Pt. to get back to running without increase in symptoms. Goal Time Frame: 4-6 Weeks Goal 4:: LTG: Pt. to demonstrate fair+ core stability with all testing. Goal Time Frame: 4-6 Weeks - Rehabilitation Potential Physical Therapy Diagnosis: Pt. has signs and symptoms consistent with lumbar spine pain with out radicular symptoms. Pt. has marked loss of lumbar extension, but also marked core weakness. She has limited ability to stabilize her core with isometric exercises and more aggressive exercises. She would benefit from PT to increase her core stability in order to tolerate her more aggressive exercises in her work out routines. Rehabilitation Potential: Excellent - Anticipated Interventions Patient/Client Instruction: Educate patient on: Condition, Plan of Care, Risk Factors, Benefits of Fitness Program For the Purpose of:: To improve decision making, To facilitate caregiver knowledge, To improve self management, To prevent re-injury, To improve ability to perform tasks related to life management Therapeutic Exercise to Include: Strength training, Power training, Flexibilty training, Passive ROM, Active ROM, Dynamic Lumbar Stabilization For the Purpose of:: To decrease pain, To increase ROM, To improve nutrient delivery to tissue, To increase oxygenation perfusion, To improve health of tissue, To decrease soft tissue restriction Thank you for the opportunity to evaluate your patient. For Medicare and Medicare HMO plans, please review the plan of care and approve it. It will need to be FAXED BACK to us at [phone] for Medicare purposes. For Medicare only, by signing this I certify the plan of care. Please let me know if there are questions or concerns regarding this plan of care. Physician Signature: Date:
== END 2022-01-09 19:00 | disposition home or self-care (01) ==
LOC: PT 08:18
PROVIDERS: PCP Nurse Practitioner Family; Referring Provider Chiropractor; Visit Provider Chiropractor
DX: M41.26 Other idiopathic scoliosis, lumbar region (principal); M99.03 Segmental and somatic dysfunction of lumbar region
CPT/HCPCS: 97110; 97161

== ENCOUNTER → 2022-03-24 | Outpatient (CLI) | payer OTHER, SELFPAY ==
--- NOTE | 2022-03-22 13:04 | MRI_ITS ---
STUDY: MRI LUMBAR SPINE WITHOUT CONTRAST REASON FOR EXAM: Female, 41 years old. Back pain TECHNIQUE: Standardized fat and water weighted pulse sequences were obtained in the sagittal and axial planes. COMPARISON: Lumbar spine radiographs 06/24/2021. FINDINGS: T11-T12 and T12-L1: (Sagittal only). Normal endplates. Normal disc height, hydration and morphology. No ventral extradural defects. Normal central canal and bilateral intervertebral neural foramina. Normal lumbar lordosis. There is no substantial scoliosis. Normal conus medullaris that terminates at the T12-L1 disc space level. L1-2: Normal endplates. Normal disc height, hydration and morphology. Normal bilateral facet joints. Normal central canal and bilateral lateral recesses. Normal bilateral intervertebral neural foramina. Ovoid benign focal fatty infiltration in the right posterior L2 vertebral body. L2-3: Normal endplates. Normal disc height, hydration and morphology. Normal bilateral facet joints. Normal central canal and bilateral lateral recesses. Normal bilateral intervertebral neural foramina. L3-4: Normal endplates. Normal disc height, hydration and morphology. Normal bilateral facet joints. Normal central canal and bilateral lateral recesses. Normal bilateral intervertebral neural foramina. L4-5: Normal endplates. Normal disc height, hydration and morphology. Normal bilateral facet joints. Normal central canal and bilateral lateral recesses. Normal bilateral intervertebral neural foramina. L5-S1: Normal endplates. Normal disc height, hydration and morphology. Normal bilateral facet joints. Normal central canal and bilateral lateral recesses. Normal bilateral intervertebral neural foramina. Normal visualized sacral ala. Normal visualized paraspinous soft tissue structures. MRI/Spine Lumbar (Routine) IMPRESSION: 1. No MRI evidence of lumbar extruded disc fragment, disc protrusion, nerve root displacement or spinal stenosis. 2. Ovoid benign focal fatty infiltration in the right posterior L2 vertebral body. Electronically Signed: Dejuan Beatty MD at 14:29 EST ,
== END | disposition home or self-care (01) ==
LOC: MRI 09:12
PROVIDERS: PCP Nurse Practitioner Family; Referring Provider Chiropractor; Visit Provider Chiropractor
DX: M41.9 Scoliosis, unspecified (principal); M99.03 Segmental and somatic dysfunction of lumbar region; M99.05 Segmental and somatic dysfunction of pelvic region
CPT/HCPCS: 72148

== ENCOUNTER → 2022-05-21 | Outpatient (CLI) | payer OTHER, SELFPAY ==
[2022-05-21 12:44] LABS: Thyroid Stim Hormone (TSH) 1.18 uIU/mL (0.358-3.74)
== END | disposition home or self-care (01) ==
LOC: BIMLAB 09:31
PROVIDERS: PCP Nurse Practitioner Family; Referring Provider Nurse Practitioner Family; Visit Provider Nurse Practitioner Family
DX: Z00.00 Encounter for general adult medical examination without abnormal findings (principal)
CPT/HCPCS: 84443

== ENCOUNTER → 2022-07-29 | Outpatient (CLI) | payer OTHER, SELFPAY ==
[2022-07-29 17:22] LABS: Amphetamine Urine VISTA NEGATIVE (<1000 ng/mL); Barbiturate Urine VISTA NEGATIVE (< 200 ng/mL); Benzodiazepine Urine VISTA NEGATIVE (< 200 ng/mL); Cocaine Urine VISTA NEGATIVE (< 300 ng/mL); Ecstacy Urine VISTA NEGATIVE (< 500 ng/mL); Methadone Urine VISTA NEGATIVE (< 300 ng/mL); PCP Urine VISTA NEGATIVE (< 25 ng/mL); THC Urine VISTA NEGATIVE (< 50 ng/mL); Vista UDS pH Range 4
== END | disposition home or self-care (01) ==
LOC: LABSPEC 16:06
PROVIDERS: PCP Nurse Practitioner Family; Visit Provider Nurse Practitioner Family
DX: F41.9 Anxiety disorder, unspecified (principal)
CPT/HCPCS: 80307

== ENCOUNTER → 2022-11-26 | Outpatient (CLI) | payer OTHER, SELFPAY ==
[2022-11-26 13:56] LABS: T4 Free Direct 0.87 ng/dL (0.76-1.46)
[2022-11-28 08:12] LABS: Thyroid Peroxidase AB 19 IU/mL (0-34)
== END | disposition home or self-care (01) ==
PROVIDERS: PCP Nurse Practitioner Family; Referring Provider Obstetrics & Gynecology; Visit Provider Obstetrics & Gynecology
DX: E01.0 Iodine-deficiency related diffuse (endemic) goiter (principal)
CPT/HCPCS: 36415; 84439; 84443; 86376

== ENCOUNTER → 2022-12-17 | Outpatient (CLI) | payer OTHER, SELFPAY ==
--- NOTE | 2022-12-17 12:36 | BI_ITS ---
MAMMOGRAPHY - BILATERAL SCREENING REASON FOR EXAM: Female, 42 years old. Routine annual screening examination. PERTINENT HISTORY: Non-contributory. TECHNIQUE: Digital bilateral breast zulema (3D mammographic acquisition) in the CC and MLO projections. 2-D mediolateral oblique (MLO) and craniocaudad (CC) views of both breasts were obtained. CAD: Full Field Digital Mammography with Computer Added Detection was performed. COMPARISON: None. Baseline examination. FINDINGS: Breast Composition: The breasts are extremely dense, which lowers the sensitivity of mammography. There are no dominant masses or suspicious calcifications. No other significant abnormalities are identified. BI/SCRN MAMM (CAD)W/ZULEMA BILAT IMPRESSION: Negative screening mammogram. Yearly followup mammogram recommended. (A) ASSESSMENT CATEGORY: BIRADS Category 1: Negative. A letter regarding these results will be sent to the patient by the facility within 30 days. Approximately 10% of breast cancers are not detected by mammography. A normal mammogram should not delay biopsy of a clinically suspicious abnormality. [id number] Electronically Signed: Parvez Draper MD at 13:29 EDT ,
--- NOTE | 2022-12-17 12:36 | US_ITS ---
STUDY: THYROID ULTRASOUND REASON FOR EXAM: Female, 42 years old. Palpably enlarged thyroid TECHNIQUE: Ultrasound evaluation of the thyroid was performed with real-time and static pack-scale imaging. COMPARISON: 05/24/2021 FINDINGS: RIGHT LOBE: The right lobe of the thyroid gland measures 5.0 x 1.5 x 1.4 cm. There is a homogeneous echotexture. There is a stable solid hypoechoic 0.8 cm nodule. LEFT LOBE: The left lobe of the thyroid gland measures 4.4 x 1.8 x 1.2 cm. There is a homogeneous echotexture. 2 separate stable solid hypoechoic nodules larger measures 1 cm. ISTHMUS: The isthmus measures 0.28 cm. The regional lymph nodes are normal. US/Thyroid IMPRESSION: Stable thyroid ultrasound with bilateral solid well-defined nodules. Nodules are solid or almost completely solid, hypoechoic, [id number], smoothly marginated and contains no echogenic foci. TI-RADS points: 4. TI-RADS category: TR4. Nodules are moderately suspicious but no FNA or follow-up is necessary given the small size of this nodule. Electronically Signed: Andrew Ordonez MD at 15:38 EDT ,
== END | disposition home or self-care (01) ==
LOC: US 12:35
PROVIDERS: PCP Nurse Practitioner Family; Referring Provider Obstetrics & Gynecology; Visit Provider Obstetrics & Gynecology
DX: E01.0 Iodine-deficiency related diffuse (endemic) goiter (principal); Z12.31 Encounter for screening mammogram for malignant neoplasm of breast
CPT/HCPCS: 76536; 77063; 77067

== ENCOUNTER → 2023-04-17 | Outpatient (CLI) | payer OTHER, SELFPAY ==
[2023-04-17 08:50] LABS: Absolute Lymphocyte Count 2.62 X10^3/uL (0.83-4.51); Basophil# 0.03 X10^3/uL; Basophil% 0.4 % (0-1); Eosinophil# 0.04 X10^3/uL; Eosinophils% 0.6 % (0-5); Hematocrit 42.3 % (37-47); Hemoglobin 14.5 g/dL (12.0-15.0); Lymphocyte # 2.62 X10^3/ul (0.83-4.51); Lymphocyte % 36.6 % (19-41); Mean Corp Hgb Conc 34.3 g/dL (32-36); Mean Corpuscular Hgb 30.1 pg (27.0-32.0); Mean Corpuscular Volume 87.9 fL (81-99); Monocyte# 0.48 X10^3/uL; Monocyte% 6.7 % (0-10); NRBC Flagged by Analyzer 0 % (0-5); Neutrophil # 3.98 X10^3/uL (2.7-7.7); Neutrophil % 55.6 % (47-70); Platelet Count 286 K/mm3 (150-450); RBC Distribution Width SD 38.5 fl (35.1-43.9); Red Blood Count 4.81 M/mm3 (4.2-5.4); White Blood Count 7.2 K/mm3 (4.4-11.0)
[2023-04-17 09:20] LABS: ALB/GLOB Ratio 1.2 RATIO (0.9-2.4); AST(SGOT) 11 U/L (15-37); Alanine Aminotransfer ALT/SGPT 20 U/L (13-56); Albumin, Serum 4.2 g/dL (3.2-5.0); Alkaline Phosphatase 48 U/L (45-117); Anion Gap 7 (5-15); BUN 12 mg/dL (7-18); BUN/Creat Ratio 16.6 RATIO (10-20); Calcium,Total 8.8 mg/dL (8.5-10.1); Chloride 108 mmol/L (98-107); Cholesterol 185 mg/dL (200); Creatinine, Serum 0.72 mg/dL (0.55-1.02); EST Glomerular Filtration Rate 95 mL/min (>60); Est Glom Filt Rate - Afr Amer 115 mL/min (>60); Globulin 3.4 g/dL (2.2-4.2); Glucose 92 mg/dL (74-106); High Density Lipoprotein 42 mg/dL; Potassium 3.9 mmol/L (3.5-5.1); Protein, Total 7.6 g/dL (6.4-8.2); Sodium Level 138 mmol/L (136-145); T4 Total, Thyroxin 8.2 ug/dL (4.8-13.9); Thyroid Stim Hormone (TSH) 1.39 uIU/mL (0.358-3.74); Triglycerides 80 mg/dL; Very Low Density Lipoprotein 16 mg/dL (5-40)
== END | disposition home or self-care (01) ==
LOC: PAVLAB 08:36
PROVIDERS: PCP Physician Assistant; Referring Provider Physician Assistant; Visit Provider Physician Assistant
DX: Z00.00 Encounter for general adult medical examination without abnormal findings (principal)
CPT/HCPCS: 36415; 80053; 80061; 84436; 84443; 85025

== ENCOUNTER → 2023-11-04 | Outpatient (CLI) | payer OTHER, SELFPAY ==
--- NOTE | 2023-11-04 10:51 | RAD_ITS ---
STUDY: X-RAY CHEST REASON FOR EXAM: Female, 43 years old. Cough. TECHNIQUE: Frontal and lateral views of the chest. COMPARISON: None. FINDINGS: The lungs are clear and expanded. There is no demonstrated pleural abnormality. Normal size heart. Normal mediastinum and bhavani. Normal visualized pulmonary arteries. Normal visualized aortic arch and descending thoracic aorta. Normal visualized thoracic spine. Normal visualized ribs, clavicles, and shoulders. No abnormality of the visualized soft tissue structures of the upper abdomen. RAD/Chest PA and Lateral IMPRESSION: Normal x-ray examination of the chest. Electronically Signed: Alfa Vasquez MD at 15:22 EDT ,
== END | disposition home or self-care (01) ==
LOC: MTRAD 10:51
PROVIDERS: PCP Physician Assistant; Referring Provider Physician Assistant; Visit Provider Physician Assistant
DX: R05.3 Chronic cough (principal)
CPT/HCPCS: 71046

== ENCOUNTER → 2023-11-06 | Outpatient (CLI) | payer OTHER, SELFPAY ==
--- NOTE | 2023-11-06 12:06 | US_ITS ---
INDICATION: thyromegaly EXAMINATION: Ultrasound US Thyroid (eg thyroid, parathyroid, parotid) TECHNIQUE: Griggs scale and color doppler imaging was performed of the thyroid gland. COMPARISON: December 17, 2022 FINDINGS: RIGHT THYROID LOBE: 5.6 x 1.8 x 1.6 cm. Homogeneous echotexture with normal vascularity. [Upper pole heterogeneous solid 1.0 x 1.0 x 0.6 cm nodule, minimally larger. LEFT THYROID LOBE: 5.3 x 1.6 x 1.4 cm. Homogeneous echotexture with normal vascularity. [Midthyroid relatively stable solid 1.2 x 0.7 x 0.6 cm nodule. There is an adjacent heterogeneous solid 0.4 x 0.4 x 0.2 cm nodule, minimally larger. ISTHMUS: 2 mm. No thyroid nodules are present. US/Thyroid IMPRESSION: Heterogeneous nodules bilaterally as described. Electronically Signed: Ross Montes DO at 21:35 EDT ,
== END | disposition home or self-care (01) ==
LOC: US 12:06
PROVIDERS: PCP Physician Assistant; Referring Provider Physician Assistant; Visit Provider Physician Assistant
DX: E01.0 Iodine-deficiency related diffuse (endemic) goiter (principal)
CPT/HCPCS: 76536

== ENCOUNTER → 2024-04-07 | Outpatient (CLI) | payer OTHER, SELFPAY ==
[2024-04-07 13:19] LABS: Vitamin B12 1103 pg/mL (211-911); Vitamin D,25 Hydroxy 21.4 ng/mL
== END | disposition home or self-care (01) ==
LOC: VSLAB 11:32
PROVIDERS: PCP Nurse Practitioner Family; Visit Provider Nurse Practitioner Family
DX: E04.1 Nontoxic single thyroid nodule (principal); E56.9 Vitamin deficiency, unspecified
CPT/HCPCS: 36415; 82306; 82607; 84443

== ENCOUNTER → 2025-01-05 | Outpatient (CLI) | payer OTHER, SELFPAY ==
--- NOTE | 2025-01-05 08:38 | BI_ITS ---
EXAM: SCRN MAMM (CAD)W/ZULEMA BILAT DATE: 01/05/2025 CLINICAL HISTORY: F, Age 44 y/o , SCREENING No family history. TECHNIQUE: Procedure Code: [id number] Modality: MG Procedure: SCRN MAMM (CAD)W/ZULEMA BILAT COMPARISON: Prior exam(s) dated December 17, 2022.. FINDINGS: TISSUE DENSITY: The breasts are extremely dense, which lowers the sensitivity of mammography. Bilateral Breast Mammographic Findings: No significant masses, calcifications or other abnormalities are identified. No suspicious masses, areas of developing architectural distortion, or suspicious calcifications. There has been no significant interval change. BI/SCRN MAMM (CAD)W/ZULEMA BILAT IMPRESSION: Stable bilateral screening mammogram. OVERALL FINAL ASSESSMENT BI-RADS 1: NEGATIVE. RECOMMENDATION: Routine annual follow-up in 1 Year Additional Recommendation none A letter with findings and recommendations will be mailed to the patient. Reading Location: [place] [id number]
== END | disposition home or self-care (01) ==
PROVIDERS: PCP Nurse Practitioner Family; Referring Provider Nurse Practitioner Family; Visit Provider Nurse Practitioner Family
DX: Z12.31 Encounter for screening mammogram for malignant neoplasm of breast (principal)
CPT/HCPCS: 77063; 77067